=== PATIENT | female | born 1960 | race Caucasian/White ===

== ENCOUNTER 2017-06-08 07:52 | Day surgery (SDC) | payer BC ==
--- NOTE | 2017-05-27 11:18 | HP ---
PREOPERATIVE HISTORY AND PHYSICAL: DATE OF SURGERY/ADMISSION: 06/08/17 - [facility] DATE OF OFFICE VISIT/ENCOUNTER: 05/20/17. ATTENDING SURGEON: Kalee Miller MD * (DICTATED BY VIRY BHAT) PROCEDURE: Right carpal tunnel release, left carpal tunnel injection. CHIEF COMPLAINT: Bilateral hand numbness, tingling, and weakness. 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 She has symptoms at night that awaken her almost every night and she also feels symptoms particularly weakness in the hands during the day. She has had an EMG nerve conduction study recently, which shows bilateral moderate carpal tunnel syndrome. Symptoms have been persistent and are getting worse over time. She has failed conservative treatment including cortisone injections and braces. She is interested in pursuing more definitive treatment at this time and we will proceed with a right carpal tunnel release, and a left carpal tunnel injection at the same time. PAST MEDICAL HISTORY: 1. Hypertension. 2. GERD. 3. Depression. PAST SURGICAL HISTORY: None. CURRENT MEDICATIONS: 1. Hydrochlorothiazide 25 mg daily. 2. Ibuprofen p.r.n. 3. Irbesartan and hydrochlorothiazide. 4. Omeprazole 20 mg daily. 5. Cymbalta. ALLERGIES: LATEX to which she has a sensitivity. FAMILY MEDICAL HISTORY: Noncontributory. SOCIAL HISTORY: The patient is employed as a nurse at the [employer]. She denies tobacco use and recreational drug use. Does admit to alcohol use on occasion. REVIEW OF SYSTEMS: General: Negative for fevers, chills, or night sweats. No known anesthesia problems. HEENT: Negative for headache, lightheadedness, or syncopal episodes. Integumentary: Negative for abrasions, lesions, or open wounds. Cardiothoracic: Positive for hypertension. Negative for chest pain, palpitations, or edema. Pulmonary: Negative for shortness of breath with exertion, chronic cough, and COPD. GI: Positive for GERD. Negative for nausea , vomiting, diarrhea, or constipation. : Negative for nocturia, urinary frequency, urgency, history of UTIs, or kidney problems. Musculoskeletal: Positive for current complaint. Negative for chronic or intermittent back pain or history of fractures. Neurological: Negative for history of seizures, stroke, or epilepsy. Positive for depression. Endocrine: Negative for diabetes or thyroid issues. Hematologic: Negative for easy bruising, anemia, excessive bleeding, or history of DVT. Infectious Disease: Negative for history of MRSA, hepatitis C, or HIV. PHYSICAL EXAMINATION GENERAL: A well-developed, well-nourished 56-year-old female in no acute distress. VITAL SIGNS: Height 5 feet 5 inches, weight 150 pounds, blood pressure 112/72, pulse rate 78. HEENT: Normocephalic, atraumatic. Pupils are equal, round, and reactive to light and accommodation. Extraocular movements are intact. NECK: Supple. No palpable lymph nodes. Throat is clear. PULMONARY: Lungs are clear to auscultation bilaterally. No wheezes, rales, or rhonchi. CARDIOVASCULAR: Regular rate and rhythm. S1 and S2. No murmurs, rubs, or gallops. No edema. ABDOMEN: Positive bowel sounds, soft, nontender. NEUROLOGIC: Alert and oriented x3. Cranial nerves II through XII are intact. MUSCULOSKELETAL: On exam of her bilateral hands, there is no visible thenar wasting. She has weakness with some abduction, but good strength with finger abduction. Negative Tinel's sign at both wrists. Mildly positive Phalen's test bilaterally. Sensation is intact to light touch. IMAGING STUDIES: EMG nerve conduction study shows bilateral moderate carpal tunnel syndrome. IMPRESSION: Bilateral carpal tunnel syndrome. PLAN/RECOMMENDATIONS: The patient is scheduled to undergo a right carpal tunnel release and a left carpal tunnel injection with Dr. Miller on 06/08/17. She will return to the office 10 to 14 days postop for followup and suture removal. A prescription for Ultracet was e-scribed to the patient's pharmacy for postoperative pain management. VIRY BHAT [id number]/[facility] #: [id number] MTDD
[~2017-06-08 07:52] MED LIST: Buffered Lidocaine 0.9% SYRIN* 5 ML/SYR SYRINGE INTRADERM ONE
[2017-06-08] MEDS ORDERED: Acetaminophen TAB* 325 MG PO PRN (08:43)
[2017-06-08] MEDS ORDERED: Ondansetron INJ* 2 MG/ML VIAL IV PRN (08:43)
[2017-06-08] MEDS ORDERED: fentaNYL* 50 MCG/ML 2 ML VIAL (100 MCG VIAL) IV PRN (08:43)
[2017-06-08] MEDS ORDERED: HYDROcodone/ACETAMIN 5-325 MG* 1 TAB PO PRN (08:43)
[2017-06-08] MEDS ORDERED: DiMENhydriNATE IV* 50 MG/ML VIAL IV PUSH PRN (08:43)
[2017-06-08] MEDS ORDERED: fentaNYL* 50 MCG/ML 2 ML VIAL (100 MCG VIAL) ONE (08:48)
[2017-06-08] MEDS ORDERED: Midazolam* 1 MG/ML 2 ML VIAL (2 MG) ONE (08:48)
[2017-06-08] MEDS ORDERED: Lidocaine 1% INJ* 10 MG/ML 30 ML SDV ONE (09:07)
[2017-06-08] MEDS ORDERED: methylPREDNISolone ACETATE 80* 80 MG/ML 1 ML VIAL ONE ×2 (09:09→09:30)
[2017-06-08] MEDS ORDERED: Ketorolac INJ* 30 MG/ML 1 ML VIAL ONE (09:22)
[2017-06-08 09:59] VITALS: BP 135/82
--- NOTE | 2017-06-08 11:21 | OP ---
DATE OF OPERATION: 06/08/17 [facility] DATE OF : 60. SURGEON: Kalee Miller MD. ASSEMBLER TYPE BAR AND SEGMENT: VIRY Parsons. ANESTHESIOLOGIST: Dr. Herbert ANESTHESIA: Local MAC. PRE-OP DIAGNOSIS: Bilateral carpal tunnel syndrome. POST-OP DIAGNOSIS: Bilateral carpal tunnel syndrome. OPERATIVE PROCEDURE: Right carpal tunnel release and left carpal tunnel injection. ESTIMATED BLOOD LOSS: Zero. TOURNIQUET TIME: 5 minutes on the right. INDICATION FOR PROCEDURE: Daniela is a 56-year-old female with bilateral carpal tunnel syndrome. She has had good result with carpal tunnel injection in the past. She presents now for a right carpal tunnel release and left carpal tunnel injection. DESCRIPTION OF PROCEDURE: The patient was brought to the operating room, was given a sedation anesthetic, and a local infiltration of 10 cc of 1% plain lidocaine in the palm of her right hand. She was then given an injection of 80 mg of Depo-Medrol and 2 cc of 1% plain lidocaine into the left carpal tunnel. Skin of the right hand and forearm was prepped and draped in the usual sterile fashion. The hand and forearm were exsanguinated and tourniquet elevated to 250 mmHg. A longitudinal incision was made in the palm in line with the ring finger. We dissected through the subcutaneous tissue down to the transverse carpal ligament. The ligament was divided sharply with a knife and then more proximally with a scissors. The nerve was dissected free from the surrounding tissue and there was an area of moderate compression at the mid portion of the ligament. The wound was irrigated and skin edges were reapproximated with 4-0 nylon suture. The wound was dressed with Xeroform, 4x4, Webril, and an Severo wrap. The patient tolerated the procedure well and was brought to the recovery room in good condition. [id number]/[facility] #: [id number] MTDD
== END 2017-06-08 10:25 | disposition home or self-care (01) ==
LOC: OREAST 07:52
PROVIDERS: ATTEND Orthopaedic Surgery
DX: G56.03 Carpal tunnel syndrome, bilateral upper limbs (principal); I10 Essential (primary) hypertension; K21.9 Gastro-esophageal reflux disease without esophagitis; F32.9 Major depressive disorder, single episode, unspecified
CPT/HCPCS: J1040; J1885; J2001; J2250; J3010

== ENCOUNTER → 2017-11-30 06:25 | Day surgery (SDC) | payer BC ==
--- NOTE | 2017-11-29 21:52 | HP ---
PREOPERATIVE HISTORY AND PHYSICAL: DATE OF ADMISSION/SURGERY: 11/30/17 [facility] DATE OF OFFICE VISIT/ENCOUNTER: 11/25/17 ATTENDING PHYSICIAN: Kalee Miller MD * (DICTATED BY VIRY BHAT) PROCEDURE: Left wrist carpal tunnel release. CHIEF COMPLAINT: Numbness and tingling, left hand. 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 She has symptoms that awaken her at night and also feels symptoms, particularly weakness in her hand during the day. She had an EMG nerve conduction study performed, which showed moderate carpal tunnel syndrome on the left. Symptoms have been persistent and are getting worse over time. She has failed conservative treatment including cortisone injection and braces. She, in the fall of last year, underwent a right carpal tunnel release and has done well with that. She is interested in pursuing a left wrist carpal tunnel release at this time. PAST MEDICAL HISTORY: 1. Hypertension. 2. GERD. 3. Depression. PAST SURGICAL HISTORY: Right carpal tunnel release. CURRENT MEDICATIONS: 1. Hydrochlorothiazide 25 mg daily. 2. Ibuprofen p.r.n. 3. Irbesartan and hydrochlorothiazide. 4. Omeprazole 20 mg daily. 5. Cymbalta. ALLERGIES: LATEX, to which she has a sensitivity. FAMILY HISTORY: Noncontributory. SOCIAL HISTORY: The patient is employed as a nurse at the [employer]. She denies tobacco use and recreational drug use. She does admit to alcohol use on occasion. REVIEW OF SYSTEMS: General: Negative for fevers, chills, or night sweats. No known anesthesia problems. HEENT: Negative for headaches, lightheadedness, or syncopal episodes. Integumentary: Negative for abrasions, lesions, or open wounds. Cardiothoracic: Positive for hypertension. Negative for chest pain, palpitations, or edema. Pulmonary: Negative for shortness of breath with exertion, chronic cough, or COPD. GI: Positive for GERD. Negative for nausea , vomiting, diarrhea, or constipation. : Negative for nocturia, urinary frequency, urgency, history of UTIs, or kidney problems. Musculoskeletal: Positive for current complaint. Negative for chronic or intermittent back pain or history of fractures. Neurological: Negative for history of seizure, stroke , and epilepsy. Positive for depression. Endocrine: Negative for diabetes and thyroid issues. Hematologic: Negative for easy bruising, anemia, excessive bleeding, or history of DVT. Infectious Disease: Negative for history of MRSA, hepatitis C, or HIV. PHYSICAL EXAMINATION GENERAL: Well-developed, well-nourished, 57-year-old female, in no acute distress. VITAL SIGNS: Height 5 feet 5 inches, weight 150 pounds, blood pressure 112/72, pulse rate 78. HEENT: Normocephalic, atraumatic. Pupils are equal, round, and reactive to light and accommodation. Extraocular movements are intact. NECK: Supple. No palpable lymph nodes. Throat is clear. PULMONARY: Lungs are clear to auscultation bilaterally. No wheezes, rales, or rhonchi. CARDIOVASCULAR: Regular rate and rhythm. S1, S2. No murmurs, rubs, or gallops. No edema. ABDOMEN: Positive bowel sounds, soft, nontender. MUSCULOSKELETAL: On exam of her left hand, there is no visible thenar wasting. She has weakness with thumb abduction, but good strength with finger abduction. Negative Tinel's sign at the wrist. Mildly positive Phalen's test. Sensation is intact to light touch throughout the hand. NEUROLOGICAL: Alert and oriented x3. Cranial nerves II through XII are intact. Sensation is intact to light touch. IMAGING STUDIES: EMG nerve conduction study shows left moderate carpal tunnel syndrome. IMPRESSION: Left carpal tunnel syndrome. PLAN: The patient is scheduled to undergo a left wrist carpal tunnel release with Dr. Miller on 11/30/17. She will return to the office 10 to 14 days postop for followup and suture removal. Pain medications for postoperative pain management will be prescribed on the day of surgery. VIRY BHAT [id number]/[facility] #: [id number] MTDStar
--- NOTE | 2017-11-29 23:50 | HP ---
PREOPERATIVE HISTORY AND PHYSICAL: DATE OF OPERATION: 11/30/17 PREOPERATIVE DIAGNOSIS: Left carpal tunnel syndrome. PROCEDURE: Left carpal tunnel release. SURGEON: Dr. Miller. 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 She has had a successful right carpal tunnel release, now presents for left carpal tunnel release. PAST MEDICAL HISTORY: Hypertension, reflux, and depression. PAST SURGICAL HISTORY: Right carpal tunnel release. CURRENT MEDICATIONS: 1. Cymbalta 60 mg p.o. daily. 2. Irbesartan hydrochlorothiazide p.o. daily. 3. Ibuprofen 400 mg p.o. p.r.n. 4. Omeprazole 20 mg p.o. daily. ALLERGIES: Latex sensitivity. FAMILY HISTORY: Noncontributory. 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 Denies tobacco use and recreational drug use. Occasional alcohol use. REVIEW OF SYSTEMS: Negative for general, HEENT, integumentary. Positive for hypertension. Negative for chest pain. Negative for pulmonary symptoms. Positive for reflux and negative for other gastrointestinal symptoms. Negative for symptoms. Negative for other musculoskeletal symptoms. Negative for neurologic symptoms. Negative for endocrine symptoms and hematologic symptoms. Negative for MRSA, hepatitis C, and HIV. PHYSICAL EXAMINATION GENERAL: She is a healthy-appearing pleasant female, in no acute distress. VITAL SIGNS: She is 5 feet 5 inches, weight is 151 pounds, blood pressure 116/ 72, temperature 98.4, respirations 16. HEENT: Exam is unremarkable. Eye movements are concentric. NECK: She has good range of motion of her neck with minimal pain. LUNGS: Clear to auscultation. Good inspiratory effort. No wheezing. CARDIAC: Regular rate and rhythm without murmur. PERIPHERAL VASCULAR: She has palpable pulses and no peripheral edema. EXTREMITIES: She has a positive Tinel sign over the median nerve. Slight thenar wasting. Weakness with some abduction. NEUROLOGIC: She is alert and oriented without focal deficits. IMPRESSION: Left carpal tunnel syndrome. PLAN/RECOMMENDATIONS: For left carpal tunnel release. The surgical procedure, risks and benefits were explained to the patient and she agrees to proceed. We will see her back in followup in 10 days approximately postop. [id number]/[facility] #: [id number] [place]
[~2017-11-30 06:25] MED LIST changes: +Dexamethasone IV* 4 MG/ML 1 ML (4 MG) ONE; +DiMENhydriNATE IV* 50 MG/ML VIAL IV PUSH PRN; +Famotidine IV* 10 MG/ML 2 ML (20 mg) IV ONE; +Famotidine IV* 10 MG/ML 2 ML (20 mg) ONE; +Ketorolac INJ* 30 MG/ML 1 ML VIAL ONE; +Labetalol IV* 5 MG/ML 20 ML VIAL ONE; +Lidocaine 1% INJ* 10 MG/ML 30 ML SDV ONE; +Lidocaine 2% PF * 5 ML VIAL ONE; +Naloxone* 0.4 MG/ML 1 ML VIAL IV PRN; +Ondansetron INJ* 2 MG/ML VIAL ONE; +PROCHLORPERAZINE INJ 5 MG/ML 2 ML VIAL IV PRN; +Propofol* 10 MG/ML 20 ML BTL IV PUSH ONE; +fentaNYL* 50 MCG/ML 2 ML VIAL (100 MCG VIAL) IV PRN; +fentaNYL* 50 MCG/ML 2 ML VIAL (100 MCG VIAL) ONE; +oxyCODONE/Acetamin 5/325 MG* TAB PO PRN
[2017-11-30 08:35] VITALS: BP 120/73
--- NOTE | 2017-11-30 22:42 | OP ---
DATE OF OPERATION: 11/30/17 [facility] DATE OF : 60 SURGEON: Kalee Miller MD [employer]: VIRY Parsons ANESTHESIA: Local MAC. PRE-OP DIAGNOSIS: Left carpal tunnel syndrome. POST-OP DIAGNOSIS: Left carpal tunnel syndrome. OPERATIVE PROCEDURE: Right carpal tunnel release. INDICATIONS: Daniela is a 57-year-old woman with numbness and tingling in the median nerve distribution of her left hand. She presents for left carpal tunnel release. ESTIMATED BLOOD LOSS: Zero. TOURNIQUET TIME: 5 minutes. DESCRIPTION OF PROCEDURE: The patient was brought to the operating room, was given a sedation anesthetic and a local infiltration of 10 cc of 1% plain lidocaine in the palm of her left hand. The skin of her left hand and forearm was prepped and draped in the usual sterile fashion. The hand and forearm were exsanguinated and the tourniquet elevated to 250 mmHg. A longitudinal incision was made in the palm in line with the ring finger. We dissected through the subcutaneous tissue down to the transverse carpal ligament. The ligament was divided sharply with a knife and then more proximally with the scissors. The nerve was dissected free from the surrounding tissue and there was an area of moderate compression at the mid portion of the ligament. The wound was irrigated and the skin edges were reapproximated with 4-0 nylon suture. The wound was dressed with Xeroform, 4x4, Webril, and an Severo wrap. The patient tolerated the procedure well, was brought to the recovery room in good condition. [id number]/[facility] #: [id number] [facility]
== END | disposition home or self-care (01) ==
LOC: OREAST 06:25
PROVIDERS: ATTEND Orthopaedic Surgery
DX: G56.02 Carpal tunnel syndrome, left upper limb (principal); I10 Essential (primary) hypertension; F32.9 Major depressive disorder, single episode, unspecified; K21.9 Gastro-esophageal reflux disease without esophagitis
CPT/HCPCS: J1100; J1885; J2405; J2704; J3010

== ENCOUNTER 2019-09-14 12:53 | Emergency (ER) | payer BC ==
--- OUTSIDE RECORDS SUMMARY | 2019-09-14 13:22 | XMS REPORT | Continuity of Care Document ---
:1960 External Reference #:[id number] Author Name Fela Merlos O.D. Address [address] [place] [address] Care Team Providers Name Role Phone Antonietta Salguero M.D. - Internal Care Team Information Process Mechanic Medicine Problems Active Problems Provider Date Essential hypertension Onset: Gastroesophageal reflux disease Onset: Nuclear senile cataract Yumiko Aquino O.D. Onset: 11/04/2015 Vitreous degeneration Yumiko Aquino O.D. Onset: 11/04/2015 Presbyopia Yumiko Aquino O.D. Onset: 11/11/2015 Tear film insufficiency Fela Merlos O.D. Onset: 04/11/2018 Social History Type Date Description Comments Sex Unknown ETOH Use Occasionally consumes alcohol Tobacco Use Start: Unknown Patient has never smoked Recreational Drug Use Denies Drug Use Smoking Status Reviewed: 05/10/19 Patient has never smoked Allergies, Adverse Reactions, Alerts Active Allergies Reaction Severity Comments Date Environmental 04/11/2018 Medications Active Medications SIG Qnty Indications Ordering Date Provider Systane as needed Fela Merlos, 05/09/2019 0.4-0.3% Solution O.D. Omeprazole Unknown 20mg Capsules Irbesartan Unknown 300mg Tablets Hydrochlorothiazide Unknown 25mg Tablets Duloxetine HCL Unknown 60mg Caps Part Visine Tears 1 drop both Unknown 0.2-0.2-1% Solution eyes as needed Fexofenadine HCL Unknown 180mg Tablets Immunizations Description No Information Available Vital Signs Description No Information Available Results Description No Information Available Procedures Date Code Description Status 05/10/2019 74959 Determination Of Refractive State Completed 05/10/2019 52553 Est Patient Comprehensive Exam Completed Medical Devices Description No Information Available Encounters Description No Information Available Assessments Date Code Description Provider 05/10/2019 H04.123 Dry eye syndrome of bilateral lacrimal glands Fela Merlos O.D. 05/10/2019 H52.4 Presbyopia Fela Merlos O.D. Plan of Treatment No Information Available Functional Status Description No Information Available Mental Status Description No Information Available Referrals Description No Information Available
[2019-09-14 13:31] VITALS: BP 121/86
--- NOTE | 2019-09-14 13:36 | UC ---
Dizzy HPI HPI Summary: Patient is a 58-year-old female presenting with complaint of "dizziness and room spinning" intermittently since yesterday. Notes nausea when she tried to get out of bed this morning because dizziness occurred when sitting up. States dizziness occurs with rapid movement of head. Denies vomiting. Denies changes in vision changes other than during dizzy spells. States dizzy spells only last a few seconds until she sits down and keeps her head still. Notes sinus congestion and sore throat with L ear fullness. Denies tinnitus and decreased hearing. States she believes she "just has a cold" but concerned for strep throat because "someone in the office has it." Patient states that she took Sudafed and meclizine [id number] this morning which helped relieve symptoms significantly. Patient states she spoke with her son who is a pharmacist about her vertigo and he is on the recommended she take those medications. Patient states that she figured she would come be seen and have her ears looked at while she was feeling better today. - History Of Current Complaint Chief Complaint: UCRespiratory Stated Complaint: LIGHT HEADED DIZZY NAUSEA Hx Obtained From: Patient Onset/Duration: Sudden Onset Pain Intensity: 0 - Allergies/Home Medications Allergies/Adverse Reactions: Allergies Allergy/AdvReac Type Severity Reaction Status Date / Time latex Allergy Mild Itching Verified 09/14/19 13:25 Home Medications: Home Medications Fexofenadine (NF) [Emilia 180 (NF)] 180 mg PO DAILY 09/14/19 [History Confirmed 09/14/19] Ibuprofen TAB* [Advil TAB*] 600 mg PO Q6H PRN 09/14/19 [History Confirmed ] Meclizine TAB* [Antivert 12.5 TAB*] 25 mg PO TID PRN 09/14/19 [History Confirmed 09/14/19] Pseudoephedrine TAB* [Sudafed TAB*] 60 mg PO Q6H PRN 09/14/19 [History Confirmed 09/14/19] PMH/Surg Hx/FS Hx/Imm Hx Previously Healthy: Yes - Surgical History Surgical History: Yes Surgery Procedure, Year, and Place: COLONOSCOPY X2 [facility] [place]- DR. ESCALONA. right carpal tunnel release 05/2017. L carpal tunnel - Family History Known Family History: Positive: Non-Contributory - Social History Occupation: Employed Full-time Lives: With Family Alcohol Use: Occasionally Substance Use Type: None Smoking Status (MU): Never Smoked Tobacco Review of Systems All Other Systems Reviewed And Are Negative: Yes Constitutional: Positive: Negative Eyes: Positive: Blurred Vision - with dizzy spells ENT: Positive: Sore Throat, Ear Ache - L ear pressure, Sinus Congestion Respiratory: Positive: Negative Cardiovascular: Positive: Negative Gastrointestinal: Positive: Nausea - with dizzy spells. Negative: Abdominal Pain, Vomiting Musculoskeletal: Positive: Negative Neurological: Positive: Negative. Negative: Headache Physical Exam Triage Information Reviewed: Yes Appearance: Well-Appearing, No Pain Distress, Well-Nourished Vital Signs: Initial Vital Signs Temp 97.8 F 09/14/19 13:26 Pulse 94 09/14/19 13:26 Resp 16 09/14/19 13:26 BP 121/86 09/14/19 13:26 Pulse Ox 100 09/14/19 13:26 Lab Results 09/14/19 Range/Units 13:51 Group A Strep Rapid Negative (Negative) Vital Signs Reviewed: Yes Eyes: Positive: Conjunctiva Clear, Other: - PERRLA. EOM intact ENT: Positive: Hearing grossly normal, Pharyngeal erythema, Nasal congestion, TMs normal, Uvula midline. Negative: Nasal drainage, Tonsillar swelling, Tonsillar exudate, Sinus tenderness Neck exam: Normal Neck: Positive: Supple, Nontender, No Lymphadenopathy Respiratory Exam: Normal Respiratory: Positive: Lungs clear, Normal breath sounds, No respiratory distress Cardiovascular Exam: Normal Cardiovascular: Positive: RRR Neurological Exam: Other - CN II-XII intact Neurological: Positive: Alert Psychological: Positive: Age Appropriate Behavior Skin Exam: Normal Dizzy Course/Dx - Course Course Of Treatment: Negative rapid strep. No episodes of vertigo during visit and no complaint of recurrent symptoms. Discussed likely viral URI and BPPV. Instructed to continue with sudafed and meclizine, as she states this treatment has been working for her. Instructed to follow up with PCP if symptoms persist or go to ED with new or worsening symptoms. Patient voiced understanding and agreed with treatment plan. - Differential Dx/Diagnosis Differential Diagnosis/HQI/PQRI: Labyrinthitis, Meniere's Disease Provider Diagnosis: BPPV (benign paroxysmal positional vertigo), URI (upper respiratory infection) Discharge ED - Sign-Out/Discharge Documenting (check all that apply): Patient Departure All imaging exams completed and their final reports reviewed: No Studies - Discharge Plan Condition: Stable Disposition: HOME Patient Education Materials: Upper Respiratory Infection (ED), Benign Paroxysmal Positional Vertigo (ED) Forms: *Work Release Referrals: Antonietta Salguero MD [Primary Care Provider] - If Needed Additional Instructions: Your rapid strep test was negative today. You may continue to take sudafed and meclizine over the counter for your symptoms. Follow up with your primary care physician if symptoms persist. Go to the emergency room with new or worsening symptoms including vomiting, difficulty walking, and vision changes. - Billing Disposition and Condition Condition: STABLE Disposition: Home
== END 2019-09-14 14:11 | disposition home or self-care (01) ==
LOC: UCCORT 12:53
DX: H81.12 Benign paroxysmal vertigo, left ear (principal); J06.9 Acute upper respiratory infection, unspecified; J02.9 Acute pharyngitis, unspecified; H53.8 Other visual disturbances; R42 Dizziness and giddiness; R11.0 Nausea; Z91.040 Latex allergy status
CPT/HCPCS: 87651; 99211; G0463

== ENCOUNTER 2019-09-16 09:26 | Emergency (ER) | payer BC ==
[2019-09-16] MEDS ORDERED: NS 0.9% 1000 ML** 1,000 ML IV ONE (09:54)
--- NOTE | 2019-09-16 10:04 | ED ---
Dizziness - HPI Summary HPI Summary: This patient is a 58 year old female with a Hx of hypertension presenting to [facility] with a chief complaint of vertigo and lightheadedness since 3 days ago. The patient was seen at two days ago and had a negative strep test. She took her meclizine as prescribed and it has not helped. She states the vertigo is constant but she gets near syncope and diaphoresis episodically when walking around. She reports nausea. She states she feels unbalanced when she walks toward the left side. No hx vertigo in past. No tinnitus, no recent URI aside from 3 days ago having some L sided facial congestion. States vertigo worse w all head movement. Currently feels improved when lying down. - History Of Current Complaint Chief Complaint: EDDizziness Stated Complaint: DIZZY/NAUSEA PER PT Time Seen by Provider: 09/16/19 09:52 Hx Obtained From: Patient Timing: Days Character: Room Spinning, Lightheaded Associated Signs And Symptoms: Positive: Unsteady Gait - Allergies/Home Medications Allergies/Adverse Reactions: Allergies Allergy/AdvReac Type Severity Reaction Status Date / Time latex Allergy Mild Itching Verified 09/16/19 09:32 PMH/Surg Hx/FS Hx/Imm Hx Cardiovascular History: Reports: Hx Hypertension - ON MEDS FOR GI History: Reports: Hx Gastroesophageal Reflux Disease - ON MEDS FOR Musculoskeletal History: Reports: Hx Arthritis - right knee Sensory History: Reports: Hx Contacts or Glasses - FOR READING ONLY Denies: Hx Hearing Aid Opthamlomology History: Reports: Hx Contacts or Glasses - FOR READING ONLY Psychiatric History: Reports: Hx Depression - ON MEDS FOR - Cancer History Hx Chemotherapy: No - Surgical History Surgery Procedure, Year, and Place: COLONOSCOPY X2 [facility] [place]- DR. ESCALONA. right carpal tunnel release 05/2017. L carpal tunnel Hx Anesthesia Reactions: No Infectious Disease History: No Infectious Disease History: Denies: Traveled Outside the [place] in Last 30 Days - Family History Known Family History: Positive: Other - Melanoma - Social History Alcohol Use: Occasionally Substance Use Type: Reports: None Smoking Status (MU): Never Smoked Tobacco Review of Systems Positive: Skin Diaphoresis, Other - Lack of balance when walking Positive: Nausea Neurological: Other - Vertigo, light headedness All Other Systems Reviewed And Are Negative: Yes Physical Exam - Summary Physical Exam Summary: Constitutional: Well-developed, Well-nourished, Alert. (-) Distressed Skin: Warm, Dry HENT: Normocephalic; Atraumatic. Eyes: Conjunctiva normal Neck: Musculoskeletal ROM normal neck. (-) JVD, (-) Stridor, (-) Nuchal rigidity Cardio: Rhythm regular, rate normal, Heart sounds normal; Intact distal pulses; Radial pulses are 2+ and symmetric. (-) Murmur Pulmonary/Chest wall: Effort normal. (-) Respiratory distress, (-) Wheezes, (-) Rales Abd: Soft, (-) tenderness, (-) Distension, (-) Guarding, (-) Rebound Musculoskeletal: (-) Edema Lymph: (-) Cervical adenopathy Neuro: Alert, PERRL, Oriented x3, Strength normal, Cranial nerves II-XII are grossly intact. R sided nystagmus, SILT, Strength 5/5 BUE and BLE, (-) Dysmetria , ambulates w left leaning gate Psych: Mood and affect Normal Triage Information Reviewed: Yes Vital Signs On Initial Exam: Initial Vitals Temp Pulse Resp BP Pulse Ox 97.3 F 104 16 145/93 96 09/16/19 09:29 09/16/19 09:29 09/16/19 09:29 09/16/19 09:29 09/16/19 09:29 Vital Signs Reviewed: Yes Procedures - Sedation Patient Received Moderate/Deep Sedation with Procedure: No Diagnostics - Vital Signs Vital Signs Temp Pulse Resp BP Pulse Ox 09/16/19 09:29 97.3 F 104 16 145/93 96 - Laboratory Result Diagrams: 09/16/19 10:15 09/16/19 10:15 Lab Statement: Any lab studies that have been ordered have been reviewed, and results considered in the medical decision making process. - Radiology Brain MRI Radiology Interpretation Completed By: Radiologist Summary of Radiographic Findings: No acute intracranial abnormality. ED Provider has reviewed this report. - CT Brain CT Interpretation Completed By: Radiologist Summary of CT Findings: No acute intracranial abnormality by CT. ED Provider has reviewed this report. - EKG 0956 Cardiac Rate: NL - 75 BPM Summary of EKG Findings: T-wave inversions in III and aVF. ED Physician has reviewed and interpreted this report. Re-Evaluation - Re-Evaluation First Eval Re-Evaluation Time: 12:25 Change: Improved - MRI neg, suspect BPPV. ambulated in ED. Sent home w zofran, has meclizine. Dizzy Course/Dx - Course Course Of Treatment: 58 y/o F w hx HTN p/w vertigo. Dizziness ddx: Differential diagnosis includes: Posterior stroke/tia - will get CT head, if remaining workup negative will get MRI and consult neurology. Vertigo: Possibly BPPV given worsening of symptoms w movement but does not localize to one size, furthermore, differential includes Menniere's - no tinnitis, not lasting hours,labyrinthitis - no h/o infectious symptoms, no tinnitus - Diagnoses Provider Diagnoses: Vertigo - Provider Notifications Discussed Care Of Patient With: Rafael Nguyen - Neurology Time Discussed With Above Provider: 11:05 - He states the risk factors are most likely for peripheral vertigo, not central, however given her risk factors he reccommends an MRI. Discharge ED - Sign-Out/Discharge Documenting (check all that apply): Patient Departure - Discharge - Discharge Plan Condition: Stable Disposition: HOME Prescriptions: Ondansetron ODT TAB* [Zofran 4 MG Odt TAB*] 4 mg PO Q8H PRN 4 Days #12 tab.odt PRN Reason: Nausea/Vomiting Patient Education Materials: Vertigo (ED) Referrals: Antonietta Salguero MD [Primary Care Provider] - Additional Instructions: You were seen in the emergency department for vertigo. Your head CT and MRI were normal. Please follow up with your primary care doctor in next 2-3 days and return to emergency department for worsening vertigo, headaches, or concerning symptoms. You can take meclizine at home or zofran for nausea. It was a pleasure taking care of you today. - Billing Disposition and Condition Condition: STABLE Disposition: Home - Attestation Statements Document Initiated by Brennan: Yes Documenting Scribe: Gurjit Chapman Provider For Whom Brennan is Documenting (Include Credential): Ester Martini MD Scribe Attestation: Gurjit Sue, scribed for Ester Martini MD on 09/16/19 at 1239. Scribe Documentation Reviewed: Yes Provider Attestation: The documentation as recorded by the Gurjit méndez accurately reflects the service I personally performed and the decisions made by me, Ester Martini MD Status of Scribe Document: Viewed
[2019-09-16 10:22] LABS: ABS Eosinophils 0.1 10^3/ul (0-0.6); ABS Lymphocytes 1.3 10^3/ul (1.0-4.8); ABS Monocytes 0.4 10^3/ul (0-0.8); ABS Neutrophils 4.5 10^3/ul (1.5-7.7); Hematocrit 41 % (35-47); Lymphocyte % 20.5 %; Mean Corpuscular HGB Conc 34 g/dL (31-36); Mean Corpuscular Hemoglobin 32 pg (27-31); Mean Corpuscular Volume 94 fL (80-97); Mean Platelet Volume 7.3 fL (7.4-10.4); Platelet Count 319 10^3/uL (150-450); Red Blood Count 4.34 10^6 /uL (3.70-4.87); Red Cell Distribution Width 13 % (10-15); White Blood Count 6.2 10^3/uL (3.5-10.8)
[2019-09-16 10:40] LABS: Albumin 4.4 g/dL (3.2-5.2); Albumin/Globulin Ratio 1.8 (1-3); Calcium 9.7 mg/dL (8.6-10.3); EGFR African American 89.1 (>60); EGFR Non-African American 73.7 (>60); Globulin 2.5 g/dL (2-4); Total Bilirubin 0.4 mg/dL (0.2-1.0); Total Protein 6.9 g/dL (6.4-8.9)
[2019-09-16 12:32] VITALS: BP 124/92
== END 2019-09-16 12:26 | disposition home or self-care (01) ==
LOC: ED 09:26
DX: R42 Dizziness and giddiness (principal); I10 Essential (primary) hypertension; K21.9 Gastro-esophageal reflux disease without esophagitis; F32.9 Major depressive disorder, single episode, unspecified; Z79.899 Other long term (current) drug therapy; Z91.040 Latex allergy status
CPT/HCPCS: 36415; 70450; 70551; 80053; 85025; 93005; 96360; 96361; 99282

== ENCOUNTER 2019-11-24 06:19 | Day surgery (SDC) | payer BC ==
--- NOTE | 2019-11-15 18:52 | HP ---
PREOPERATIVE HISTORY AND PHYSICAL: DATE OF ADMISSION/SURGERY: 11/24/19 DATE OF OFFICE VISIT/ENCOUNTER: 11/06/19 ATTENDING SURGEON: Kalee Mcelroy MD * (DICTATED BY VIRY BHAT) PROCEDURE: Trigger release, right long finger. HISTORY OF PRESENT ILLNESS: This is a 59-year-old female who has had ongoing problems with right long finger triggering. She has received cortisone injections in the past which were initially helpful but had become less helpful over time. She is now ready to proceed with surgical intervention for his problem. PAST MEDICAL HISTORY: 1. Hypertension. 2. GERD. 3. Depression. 4. History of benign positional vertigo. PAST SURGICAL HISTORY: Bilateral carpal tunnel releases. CURRENT MEDICATIONS: 1. Emilia Allergy 180 mg daily. 2. Clobetasol propionate 0.05% apply sparingly to affected area twice daily p.r.n. 3. Cymbalta 60 mg daily. 4. Hydrochlorothiazide 25 mg daily. 5. Ibuprofen p.r.n. 6. Irbesartan 300 mg daily. 7. Omeprazole 20 mg daily. 8. Trazodone 50 mg 1 to 2 tabs at bedtime. ALLERGIES: No known drug allergies but she has an allergy to LATEX. SOCIAL HISTORY: The patient is employed as a nurse at [employer]. She denies tobacco use or recreational drug use. She drinks alcohol on occasion. REVIEW OF SYSTEMS: Negative for general, cephalic, cardiovascular, respiratory , GI, , other musculoskeletal, integumentary, endocrine, neurologic, and hematologic symptoms. Infectious Disease: Negative for MRSA, hepatitis C, HIV. PHYSICAL EXAMINATION GENERAL: A well-developed, well-nourished 59-year-old female, in no acute distress. VITAL SIGNS: Height 5 feet 5 inches, weight 155 pounds, pulse rate 92, blood pressure 136/82. HEENT: Normocephalic, atraumatic. Pupils are equal, round, and reactive to light and accommodation. Extraocular movements are intact. Throat is clear. NECK: Supple. No palpable lymph nodes. PULMONARY: Lungs are clear to auscultation bilaterally. No wheezes, rales, or rhonchi. CARDIOVASCULAR: Regular rate and rhythm. S1, S2. No murmurs, rubs, or gallops. No edema. ABDOMEN: Positive bowel sounds. Soft, nontender. NEUROLOGICAL: Alert and oriented x3. Cranial nerves II through XII are intact. Sensation is intact to light touch. MUSCULOSKELETAL: On exam of her right hand, there is no visible swelling. There is tenderness to palpation at the A1 king of the right long finger. She has trouble fully flexing the finger without pain and she has active triggering when returning the finger to an extended position. Skin is intact. Neurovascular function is intact. IMPRESSION: Trigger finger, right long finger. PLAN: The patient is scheduled to undergo a trigger release, right long finger with Dr. Mcelroy on 11/24/19. She will return to the office 10 days postop for followup and suture removal. A prescription for tramadol was e-scribed to the patient's pharmacy for postoperative pain management. VIRY BHAT [id number]/[id number] #: [id number] LATONIA
[~2019-11-24 06:19] MED LIST changes: -Buffered Lidocaine 0.9% SYRIN* 5 ML/SYR SYRINGE INTRADERM ONE; +Buffered Lidocaine 1% SYRIN* 1 ML/SYRINGE INTRADERM ONE; -Dexamethasone IV* 4 MG/ML 1 ML (4 MG) ONE; -DiMENhydriNATE IV* 50 MG/ML VIAL IV PUSH PRN; -Famotidine IV* 10 MG/ML 2 ML (20 mg) ONE; -Ketorolac INJ* 30 MG/ML 1 ML VIAL ONE; -Labetalol IV* 5 MG/ML 20 ML VIAL ONE; +Lactated Ringers 1000 ML Bag* 1,000 ML IV SCH; -Lidocaine 1% INJ* 10 MG/ML 30 ML SDV ONE; -Lidocaine 2% PF * 5 ML VIAL ONE; -Naloxone* 0.4 MG/ML 1 ML VIAL IV PRN; -Ondansetron INJ* 2 MG/ML VIAL ONE; -PROCHLORPERAZINE INJ 5 MG/ML 2 ML VIAL IV PRN; -Propofol* 10 MG/ML 20 ML BTL IV PUSH ONE; -fentaNYL* 50 MCG/ML 2 ML VIAL (100 MCG VIAL) IV PRN; -fentaNYL* 50 MCG/ML 2 ML VIAL (100 MCG VIAL) ONE; -oxyCODONE/Acetamin 5/325 MG* TAB PO PRN
[2019-11-24] MEDS ORDERED: Famotidine IV* 10 MG/ML 2 ML (20 mg) ONE (06:26)
[2019-11-24] MEDS ORDERED: Propofol* 10 MG/ML 20 ML BTL ONE (06:53)
[2019-11-24] MEDS ORDERED: Dexamethasone IV* 4 MG/ML 1 ML (4 MG) ONE (06:53)
[2019-11-24] MEDS ORDERED: Lidocaine 2% PF * 5 ML VIAL ONE ×2 (06:53→06:58)
[2019-11-24] MEDS ORDERED: fentaNYL* 50 MCG/ML 2 ML VIAL (100 MCG VIAL) ONE (06:53)
[2019-11-24] MEDS ORDERED: Midazolam* 1 MG/ML 5 ML VIAL (5 MG) ONE (06:53)
[2019-11-24] MEDS ORDERED: Ondansetron INJ* 2 MG/ML VIAL ONE (06:53)
[2019-11-24] MEDS ORDERED: Ketorolac INJ* 30 MG/ML 1 ML VIAL ONE (06:53)
[2019-11-24] MEDS ORDERED: Lidocaine 1% INJ* 10 MG/ML 30 ML SDV ONE (06:56)
[2019-11-24] MEDS ORDERED: Ondansetron INJ* 2 MG/ML VIAL IV PRN (07:56)
[2019-11-24] MEDS ORDERED: Naloxone* 0.4 MG/ML 1 ML VIAL IV PRN (07:56)
[2019-11-24] MEDS ORDERED: fentaNYL* 50 MCG/ML 2 ML VIAL (100 MCG VIAL) IV PRN (07:56)
[2019-11-24] MEDS ORDERED: oxyCODONE/Acetamin 5/325 MG* TAB PO PRN (07:56)
[2019-11-24 08:33] VITALS: BP 129/89
--- NOTE | 2019-11-24 21:15 | OP ---
DATE OF OPERATION: 11/24/19 [facility] DATE OF : 60 SURGEON: Kalee Mcelroy MD. BEVERAGE HOST: VIRY Parsons. ANESTHESIA: Local MAC. PRE-OP DIAGNOSIS: Right long finger trigger finger. POST-OP DIAGNOSIS: Right long finger trigger finger. OPERATIVE PROCEDURE: Right long finger trigger release. ESTIMATED BLOOD LOSS: Zero. TOURNIQUET TIME: Approximately 10 minutes. INDICATION FOR PROCEDURE: Daniela is a 59-year-old female who has triggering and locking of her right long finger. She has failed conservative treatment, presents now for trigger finger release. DESCRIPTION OF PROCEDURE: The patient was brought to the operating room and was given a sedation anesthetic and a local infiltration of 10 cc of 1% plain lidocaine in the palm of her right hand. The skin of her right hand and forearm was prepped and draped in the usual sterile fashion. The hand and forearm were exsanguinated and the tourniquet elevated to 250 mmHg. A transverse incision was made centered over the A1 king of the right long finger. We dissected bluntly through the subcutaneous tissue down to the A1 king. The king was incised longitudinally, completely releasing the flexor tendon which was in good condition. The wound was irrigated and the skin edges reapproximated with 4-0 nylon suture. The wound was dressed with Xeroform, 4x4 , Webril, and an Severo wrap. The patient tolerated the procedure well and was brought to the recovery room in good condition. [id number]/CPS #: [id number] MTDD
== END 2019-11-24 08:34 | disposition home or self-care (01) ==
LOC: OREAST 06:19
PROVIDERS: ATTEND Orthopaedic Surgery
DX: M65.331 Trigger finger, right middle finger (principal); I10 Essential (primary) hypertension; K21.9 Gastro-esophageal reflux disease without esophagitis; M19.90 Unspecified osteoarthritis, unspecified site; R42 Dizziness and giddiness; F41.8 Other specified anxiety disorders
CPT/HCPCS: J1100; J1885; J2250; J2405; J2704; J3010